=== PATIENT | female | born 1990 | race Caucasian/White ===

== ENCOUNTER 2018-04-09 09:46 | Emergency (ER) | payer MEDICAID ==
--- NOTE | 2018-04-09 10:20 | EDPHY ---
H & P Stated Complaint: lightheaded, n/v Time Seen by Provider: 04/09/18 10:19 HPI/ROS: HPI: This is a 28-year-old female who presents with Chief Complaint: Lightheaded, nausea, vomiting Location: GI Quality: Nausea, vomiting, epigastric pain Duration: Since Tuesday Signs and Symptoms: no fever, + nausea, + vomiting, no hematemesis, no blood in stool, no abdominal bloating, no diarrhea, no back pain, + burning with urination, no vaginal bleeding/discharge, no indigestion, no chest pain, no shortness of breath Timing: Acute, multiple episodes, improving Severity: Moderate Context: Patient is generally healthy, presents with around 8:00 p.m. Tuesday evening after eating dinner around 7:00 p.m. She started to experience nausea and then had 1 episode of vomiting of her stomach contents. She woke up Tuesday morning and still felt nauseous. When she drank water or attempted to eat, she vomited her stomach contents. This occurred approximately 2-3 times on Tuesday. she did not eat any food or drink any water. She went to urgent care and was diagnosed with gastroenteritis. She was given a GI cocktail and Zofran. Her laboratory studies at that time were normal per patient. Tuesday she saw her primary care provider, Vilma Martinez, who reexamined her and prescribed her Prilosec and more antiemetics. Patient reports that she has continued nausea but has not had any vomiting episodes since . She complains of this burning, epigastric discomfort that worsens with eating foods. She denies any fever, abdominal cramping, abdominal bloating, diarrhea. Does report mild burning with urination for the last 1 day. Denies any back pain/hematuria. She has had no recent antibiotic use and no recent foreign travel. LMP 2-3 weeks ago. 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 Does not use NSAIDs regularly. Has not drank alcohol in 2 weeks. Modifying Factors: See above Comment: ROS: see HPI Constitutional: No fever, no chills, no weight loss Eyes: No blurred vision Respiratory: No shortness of breath, no cough Cardiovascular: No chest pain, no palpitations Gastrointestinal: + nausea, + vomiting, no diarrhea, no hematemesis, no blood in stool Genitourinary: + dysuria, no blood in urine Extremities: No myalgias, no edema Neurologic: No weakness, no numbness Skin: No rashes, no petechiae Hematologic: No bruising, no bleeding MEDICAL/SURGICAL/SOCIAL HISTORY: Medical history: Guillain barre, ovarian cyst Surgical history: LEEP procedure Social history: Works in a restaurant. Family history noncontributory. CONSTITUTIONAL: Extremely well-appearing adult white female, awake and alert, no obvious distress HEENT: Atraumatic and normocephalic, PERRL, EOMI. Nares patent; no rhinorrhea; no nasal mucosal edema. Tympanic membranes clear. Oropharynx clear, no exudate and moist pink mucosa. Airway patent. No lymphadenopathy. No meningismus. Cardiovascular: Normal S1/S2, regular rate, regular rhythm, without murmur rub or gallop. PULMONARY/CHEST: Symmetrical and nontender. Clear to auscultation bilaterally. Good air movement. No accessory muscle usage. ABDOMEN: Soft, nondistended, moderate right upper quadrant tenderness, mild epigastric tenderness, no rebound, no guarding, no peritoneal signs, no masses or organomegaly. No CVAT. EXTREMITIES: 2/2 pulses, strength 5/5, no deformities, no clubbing, no cyanosis or edema. NEUROLOGICAL: no focal neuro deficits. GCS 15. SKIN: Warm and dry, no erythema. no rash. Good capillary refill. Source: Patient Exam Limitations: No limitations - Personal History LMP (Females 10-55): 15-21 Days Ago Current Tetanus/Diphtheria Vaccine: Yes Current Tetanus Diphtheria and Acellular Pertussis (TDAP): Yes - Medical/Surgical History Hx Asthma: No Hx Chronic Respiratory Disease: No Hx Diabetes: No Hx Cardiac Disease: No Hx Renal Disease: No Hx Cirrhosis: No Hx Alcoholism: No Hx HIV/AIDS: No Hx Splenectomy or Spleen Trauma: No Other PMH: Guillain barre, ovarian cyst, leep procedure - Social History Smoking Status: Never smoked Constitutional: Initial Vital Signs Temperature (C) 36.6 C 04/09/18 09:58 Heart Rate 53 L 04/09/18 09:58 Respiratory Rate 16 04/09/18 09:58 Blood Pressure 113/61 04/09/18 09:58 O2 Sat (%) 98 04/09/18 09:58 O2 Delivery Mode Room Air Allergies/Adverse Reactions: Penicillins Allergy (Severe, Verified 04/09/18 09:57) Home Medications: Medication Instructions Recorded Ondansetron Odt [Zofran Odt] 4 mg PO Q4PRN PRN #10 tab 04/15/14 Flexeril 10 MG (*) 04/09/18 Nitrofurantoin Macrobid [Macrobid] 100 mg PO BID #14 cap 04/09/18 Omeprazole 04/09/18 Medical Decision Making - Diagnostics Imaging Results: Imaging Impressions Abdomen Ultrasound 04/09/18 10:40 Impression: No evidence for cholelithiasis or cholecystitis. Mild fatty infiltration of the liver. Limited visualization of the pancreas secondary to overlying bowel gas. Results called and discussed with Bruna Morris PA-C on April 09, 2018 at 1139 hours. ED Course/Re-evaluation: Vital signs reviewed upon arrival in stable. Labs, urinalysis, right upper quadrant ultrasound, IV fluids, IV medications ordered Patient given 1 L normal saline, IV Protonix 40 mg, IV promethazine 12.5 mg 1103: Labs reviewed. No signs of leukocytosis/anemia/platelet dysfunction/OTILIA/ elevated LFTs/electrolyte imbalance/pancreatitis. 1125: Urinalysis: turbid, 1+ blood, 3+ LE, 1138: Called lab to have urine analysis results reported as they have been pending for some time now. 1140: Called by Radiology, Dr. Robin, who advised that right upper quadrant ultrasound shows a normal gallbladder, no signs of acute cholecystitis/ cholelithiasis, + mild fatty liver 1147: Urine result shows a turbid, 1+ blood, 3+ LE, WBCs 50-182, epithelial cells 4+ and 1+ bacteria, sent for urine culture. Epithelial cells suspicious for contaminated specimen. Patient reports that she had a LEEP procedure approximately 2 weeks ago. Due to recent gynecologic procedure and 1 day history of burning with urination, Prescription for Macrobid given. Patient reports that she feels "a lot better." Repeat abdominal exam is soft and nontender. Doubt surgical process, gastric perforation. 1150: P.o. Trial; apple juice, Azael crackers with peanut butter without any difficulty. Patient will be discharged home with Macrobid prescription. She already has a prescription for Zofran. This patient was seen under the supervision of my secondary supervising physician. I evaluated care for this patient independently. Discussed this patient with Dr. Cisse. Differential Diagnosis: Differential diagnosis includes but is not limited to gastroenteritis, gastritis , gallbladder disease, GERD. - Data Points Laboratory Results: Laboratory Results 04/09/18 10:20 04/09/18 10:20 04/09/18 04/09/18 04/09/18 10:45 10:20 10:20 WBC RBC Hgb Hct MCV MCH MCHC RDW Plt Count MPV Neut % (Auto) Lymph % (Auto) Towns % (Auto) Eos % (Auto) Baso % (Auto) Nucleat RBC Rel Count Absolute Neuts (auto) Absolute Lymphs (auto) Absolute Monos (auto) Absolute Eos (auto) Absolute Basos (auto) Absolute Nucleated RBC Immature Gran % Immature Gran # Sodium 142 mEq/L mEq/L (135-145) Potassium 4.7 mEq/L mEq/L (3.3-5.0) Chloride 103 mEq/L mEq/L (97-110) Carbon Dioxide 24 mEq/l mEq/l (22-31) Anion Gap 15 mEq/L mEq/L (8-16) BUN 24 mg/dL H mg/dL (7-23) Creatinine 0.8 mg/dL mg/dL (0.6-1.0) Estimated GFR > 60 Glucose 79 mg/dL mg/dL (70-100) Calcium 9.1 mg/dL mg/dL (8.5-10.4) Total Bilirubin 0.5 mg/dL mg/dL (0.1-1.4) Conjugated Bilirubin 0.5 mg/dL mg/dL (0.0-0.5) Unconjugated Bilirubin 0.0 mg/dL mg/dL (0.0-1.1) AST 37 IU/L IU/L (14-46) ALT 33 IU/L IU/L (9-52) Alkaline Phosphatase 67 IU/L IU/L (38-126) Total Protein 7.4 g/dL g/dL (6.3-8.2) Albumin 4.1 g/dL g/dL (3.5-5.0) Lipase 157 IU/L IU/L (23-300) Beta HCG, Qual NEGATIVE Urine Color YELLOW Urine Appearance MODERATELY TURBID Urine pH 6.0 (5.0-7.5) Ur Specific [place] 1.021 (1.002-1.030) Urine Protein NEGATIVE (NEGATIVE) Urine Ketones NEGATIVE (NEGATIVE) Urine Blood 1+ H (NEGATIVE) Urine Nitrate NEGATIVE (NEGATIVE) Urine Bilirubin NEGATIVE (NEGATIVE) Urine Urobilinogen NEGATIVE EU EU (0.2-1.0) Ur Leukocyte Esterase 3+ H (NEGATIVE) Urine RBC 15-25 /hpf H /hpf (0-3) Urine WBC 50-182 /hpf H /hpf (0-3) Ur Epithelial Cells 4+ /lpf H /lpf (NONE-1+) Urine Bacteria 1+ /hpf H /hpf (NONE SEEN) Urine Mucus TRACE /lpf /lpf (NONE-1+) Urine Glucose NEGATIVE (NEGATIVE) 04/09/18 10:20 WBC 7.09 10^3/uL 10^3/uL (3.80-9.50) RBC 4.57 10^6/uL 10^6/uL (4.18-5.33) Hgb 14.2 g/dL g/dL (12.6-16.3) Hct 40.1 % % (38.0-47.0) MCV 87.7 fL fL (81.5-99.8) MCH 31.1 pg pg (27.9-34.1) MCHC 35.4 g/dL g/dL (32.4-36.7) RDW 11.8 % % (11.5-15.2) Plt Count 293 10^3/uL 10^3/uL (150-400) MPV 9.9 fL fL (8.7-11.7) Neut % (Auto) 58.8 % % (39.3-74.2) Lymph % (Auto) 33.6 % % (15.0-45.0) Towns % (Auto) 5.8 % % (4.5-13.0) Eos % (Auto) 1.3 % % (0.6-7.6) Baso % (Auto) 0.4 % % (0.3-1.7) Nucleat RBC Rel Count 0.0 % % (0.0-0.2) Absolute Neuts (auto) 4.17 10^3/uL 10^3/uL (1.70-6.50) Absolute Lymphs (auto) 2.38 10^3/uL 10^3/uL (1.00-3.00) Absolute Monos (auto) 0.41 10^3/uL 10^3/uL (0.30-0.80) Absolute Eos (auto) 0.09 10^3/uL 10^3/uL (0.03-0.40) Absolute Basos (auto) 0.03 10^3/uL 10^3/uL (0.02-0.10) Absolute Nucleated RBC 0.00 10^3/uL 10^3/uL (0-0.01) Immature Gran % 0.1 % % (0.0-1.1) Immature Gran # 0.01 10^3/uL 10^3/uL (0.00-0.10) Sodium Potassium Chloride Carbon Dioxide Anion Gap BUN Creatinine Estimated GFR Glucose Calcium Total Bilirubin Conjugated Bilirubin Unconjugated Bilirubin AST ALT Alkaline Phosphatase Total Protein Albumin Lipase Beta HCG, Qual Urine Color Urine Appearance Urine pH Ur Specific [place] Urine Protein Urine Ketones Urine Blood Urine Nitrate Urine Bilirubin Urine Urobilinogen Ur Leukocyte Esterase Urine RBC Urine WBC Ur Epithelial Cells Urine Bacteria Urine Mucus Urine Glucose Medications Given: Discontinued Medications Sodium Chloride (Ns) 1,000 mls @ 0 mls/hr IV EDNOW ONE; Wide Open PRN Reason: Protocol Stop: 04/09/18 10:40 Last Admin: 04/09/18 11:14 Dose: 1,000 mls Pantoprazole Sodium (Protonix) 40 mg IVP EDNOW ONE Stop: 04/09/18 10:41 Last Admin: 04/09/18 11:15 Dose: 40 mg Promethazine HCl (Phenergan) 12.5 mg IVP EDNOW ONE Stop: 04/09/18 10:40 Last Admin: 04/09/18 11:15 Dose: 12.5 mg Departure - Departure Disposition: Home, Routine, Self-Care Clinical Impression: Gastroenteritis, Bacteria in urine, Dysuria Condition: Good Instructions: Nitrofurantoin Combination (By mouth), Urinary Tract Infection in Women (ED), Gastroenteritis (ED), Upper Endoscopy (DC) Additional Instructions: Consume a minimum of 8-10 glasses of water or electrolyte fluid replacement drinks that include Gatorade, Powerade, Pedialyte. Eat a bland diet for the next 48 hours and then slowly advance as tolerated. Take Zofran 1 tab every 4 hours as needed for nausea, vomiting. Take Macrobid twice daily x7 days for urinary tract infection. Continue to take Omeprazole daily. If symptoms continue, follow-up with primary care provider in 3-4 days at which time a referral to Gastroenterology may be warranted to determine candidacy for EGD. Return to the ER immediately if you experience new, continued or worsening abdominal pain, fevers/chills, inability to tolerate oral intake, new pain, or any other symptoms that concern you. Referrals: Trinh Martinez PA [Primary Care Provider] - 3-4 days, if not improved Prescriptions: Nitrofurantoin Macrobid [Macrobid] 100 mg PO BID #14 cap
[2018-04-09] MEDS ORDERED: PROMETHAZINE HCL 25 MG/ML INJ IVP ONE (10:39)
[2018-04-09] MEDS ORDERED: NS 1,000 ML IV ONE (10:39)
[2018-04-09] MEDS ORDERED: PANTOPRAZOLE SODIUM 40 MG VIAL IVP ONE (10:40)
[2018-04-09 10:47] LABS: PLATELET COUNT 293 10^3/uL (150-400)
[2018-04-09 12:14] VITALS: BP 102/58
== END 2018-04-09 12:13 | disposition home or self-care (01) ==
DX: K52.9 Noninfective gastroenteritis and colitis, unspecified (principal); N39.0 Urinary tract infection, site not specified; B96.89 Other specified bacterial agents as the cause of diseases classified elsewhere; E86.9 Volume depletion, unspecified
CPT/HCPCS: 96374; J2550